=== PATIENT | male | born 1950 | race Caucasian/White ===

== ENCOUNTER 2020-04-17 20:44 | Inpatient (IN) | payer MEDICARE, SELFPAY ==
[2020-04-17] VITALS (8 sets, daily range): BP systolic 76–114; BP diastolic 52–69; PULSE 94–116; RESP 18–34; TEMP 36.6–37.2; O2SAT 94–97; BMI 26.3
--- NOTE | 2020-04-17 20:58 | EKG12_ITS ---
Test Reason : WEAKNESS Blood Pressure : / mmHG Vent. Rate : 110 BPM Atrial Rate : 110 BPM P-R Int : 150 ms QRS Dur : 068 ms QT Int : 382 ms P-R-T Axes : 027 043 037 degrees QTc Int : 516 ms Sinus tachycardia Low voltage QRS Borderline ECG Confirmed by MARYLU SOLORZANO, BERNIE ([id number]), news videotape editor BLANQUITA HORN ([id number]) on 04/19/2020 9:20:35 AM Referred By: ANTOLIN Confirmed By:BERNIE VALERO MD
--- NOTE | 2020-04-17 20:58 | CT_ITS ---
We are attempting to reach an attending provider to discuss findings. An addendum with communication details will be sent when the communication is complete. STUDY: CT ABDOMEN AND PELVIS WITH CONTRAST REASON FOR EXAM: Male, 70 years old. MID ABDOMEN PAIN.DIARRHEA AND WEAKNESS,PT RECENTLY DXWITH PANCREATIC CANCER WITH METS TO LIVER AND BONE,RECENTLY MOVED HERE FROM [place] RADIATION DOSAGE (If Supplied By Facility): CTDIvol = ( 18.09 ) mGy, DLP = ( 1141.89 ) mGycm TECHNIQUE: Transaxial images were obtained from the dome of the diaphragm to the symphysis pubis without oral contrast. IV 100mL Isovue-370 was administered. Sagittal and coronal images were reconstructed. Individualized dose optimization techniques were used for this CT. COMPARISON: None. FINDINGS: The visualized lung bases demonstrates scattered nodules up to 5 mm. The visualized portions of the heart are within normal limits. Scattered lesions throughout the liver up to 4.1 cm. Normal gallbladder and extrahepatic biliary system. Normal spleen. Heterogeneous pancreas with irregular enlargement of body likely related to a mass estimated at 4.5 x 4.9 cm. There is ascites in the upper abdomen. Normal bilateral adrenal glands. Normal right kidney. Normal left kidney. Normal visualized stomach. Normal small intestine. Diverticulosis of the colon. Wall thickening of the ascending colon and the sigmoid colon. The appendix is borderline in size measuring 8 mm. There are small gas droplets with scattered throughout the mesentery. Perforation cannot be excluded. Calcified abdominal aorta. Normal inferior vena cava. There is adenopathy in the retroperitoneum. Wall thickening of the urinary bladder. There is a pelvic and right lower quadrant fluid. There are gas droplets within the pelvic fluid. Small fatty umbilical hernia. Mild heterogeneity of the lower thoracic segments. CT/Abdomen/Pelvis W IV Cont ONLY IMPRESSION: Bilateral scattered pulmonary nodules. Hepatic lesions throughout the liver. Findings are suggestive of metastasis. Pancreatic mass. Colonic diverticulosis. Wall thickening of the ascending and sigmoid colon. Mild ascites and pelvic fluid collection. Scattered gas droplets within the abdomen and pelvis. Perforation cannot be excluded. Retroperitoneal adenopathy. Electronically Signed: Phoenix Hudson DO at 22:44 EDT Tel [phone], Service support ,
--- NOTE | 2020-04-17 21:02 | ED.VISSUMM ---
- ER Visit Summary Date of Service: 04/17/20 Chief Complaint: Generalized weakness History of Present Illness: The patient is a 70 M presenting with generalized weakness and fatigue. Family states this has been ongoing for the past couple weeks but has worsened over the past 48 hours. Patient has had diarrhea over the past couple of weeks. He was recently diagnosed with pancreatic cancer with mets to the liver and bones. He was previously living in [place] and family recently went to [place] to get him and brought him back to [place] to live. He denies any fever. Denies chest pain or shortness of breath. Denies other complaints. He did have a COVID test a couple weeks ago before a needle biopsy that was negative. Physical Examination: Blood pressure 83/53, temperature 97.8, heart rate 116, respiratory rate 18. Pulse ox 97% on room air. HEENT exam dry mucous membranes Neck is supple. Lungs are clear and equal bilaterally. Heart is regular and tachycardic Abdomen is soft epigastric tenderness with no guarding or rebound Extremities are unremarkable. Skin is warm and dry. No focal neurologic deficit. Remainder of exam is unremarkable. Emergency Department Course and Treatment: Patient was given IV fluids. CBC shows normal white count. Chemistries show sodium 125, potassium 3.4, BUN 47, creatinine 1.31. Total bili 1.9, previous total bili 1.4. Alk phos 154. Lipase is normal. Urinalysis shows positive nitrites, 0 white cells. Urine culture was sent. Troponin is negative. Lactic acid 5.3. Patient was given additional IV fluids. Repeat BP 114/62. Blood and stool cultures were ordered. CT abdomen/pelvis bilateral scattered pulmonary nodules. Hepatic lesions throughout the liver. Findings are suggestive of metastasis. Pancreatic mass. Colonic diverticulosis. Wall thickening of the ascending and sigmoid colon. Mild ascites and pelvic fluid collection. Scattered gas droplets within the abdomen and pelvis. Perforation cannot be excluded. Retroperitoneal adenopathy. Discussed with Dr. Yu. He will evaluate the patient in the emergency department. After further discussion with the patient and his nephew, his power of district attorney, they would like to pursue hospice care. Discussed with hospice. Patient and family do not want to be transferred tonight. Hospice will follow-up in the morning. Discussed with the hospitalist for admission. DO NOT RESUSCITATE comfort care only. Disposition: Admission Impression: Dehydration, lactic acidosis, hyponatremia, pneumoperitoneum, metastatic pancreatic cancer, DNR CC This note was generated with [employer] dictation software. It may contain incorrect words, spelling, and punctuation that were not noted in review of the chart prior to signing ED Disposition - Plan for ED Patient: Referrals: Care Physician,No Primary [Primary Care Provider] -
[2020-04-17] MEDS: 0.9% Normal Saline 1,000 ML 1000 ML IV ×2 (21:05→22:01)
[2020-04-17 21:11] LABS: Absolute Lymphocyte Count 1.24 X10^3/uL (0.83-4.51); Absolute Neutrophil Count 8.3 X10^3/uL (2.0-7.7); Basophil# 0.04 X10^3/uL; Basophil% 0.4 % (0-1); Eosinophil# 0.51 X10^3/uL; Eosinophils% 4.9 % (0-5); Hematocrit 41.8 % (40-54); Hemoglobin 14.4 g/dL (13.0-16.5); Lymphocyte # 1.24 X10^3/ul (4.0); Lymphocyte % 11.8 % (19-41); Mean Corp Hgb Conc 34.4 g/dL (32-36); Mean Corpuscular Hgb 28.2 pg (27.0-32.0); Mean Corpuscular Volume 81.8 fL (80-94); Mean Platelet Vol. 11.6 fl (6.2-12.0); Monocyte# 0.38 X10^3/uL; Monocyte% 3.6 % (0-10); NRBC Flagged by Analyzer 0 % (0-5); Neutrophil # 8.25 X10^3/uL (2.7-7.7); Neutrophil % 78.8 % (47-70); POSITIVE MORPHOLOGY YES; Platelet Count 213 K/mm3 (150-450); RBC Distribution Width CV 14.9 % (11.6-14.6); RBC Distribution Width SD 43.6 fl (35.1-43.9); Red Blood Count 5.11 M/mm3 (4.6-6.2); White Blood Count 10.5 K/mm3 (4.4-11.0)
[2020-04-17 21:16] LABS: Differential Indicated SCAN CRITERIA MET
--- NOTE | 2020-04-17 21:20 | RAD_ITS ---
STUDY: X-RAY CHEST REASON FOR EXAM: Male, 70 years old. Diarrhea, weakness x 3 days TECHNIQUE: Frontal view COMPARISON: None. FINDINGS: The lungs are expanded. Mild right basilar atelectasis. Normal size heart. Normal mediastinum and nayla. Normal visualized pulmonary arteries. Normal visualized aortic arch and descending thoracic aorta. Degenerative changes of the thoracic spine. Degenerative changes at the shoulders. Old left clavicular injury. There is no demonstrated abnormality of the visualized soft tissue structures of the upper abdomen. RAD/Chest 1 View (Portable) IMPRESSION: Mild right basilar atelectasis. Electronically Signed: Phoenix Hudson DO at 21:49 EDT Tel [phone], Service support ,
[2020-04-17 21:30] LABS: ALB/GLOB Ratio 0.4 RATIO (0.9-2.4); AST(SGOT) 37 U/L (15-37); Alanine Aminotransfer ALT/SGPT 13 U/L (16-61); Alkaline Phosphatase 154 U/L (45-117); Anion Gap 10 (5-15); BUN 47 mg/dL (7-18); BUN/Creat Ratio 35.9 RATIO (10-20); Calcium,Total 8.8 mg/dL (8.5-10.1); Chloride 79 mmol/L (98-107); Creatinine, Serum 1.31 mg/dL (0.70-1.30); EST Glomerular Filtration Rate 58 mL/min (>60); Est Glom Filt Rate - Afr Amer 70 mL/min (>60); Estimated Creatinine Clearance 47.35 ml/min; Globulin 5.3 g/dL (2.2-4.2); Glucose 117 mg/dL (74-106); Lipase 83 U/L (73-393); Potassium 3.4 mmol/L (3.5-5.1); Protein, Total 7.3 g/dL (6.4-8.2); Sodium Level 125 mmol/L (136-145)
[2020-04-17 21:41] LABS: Differential Comment SCANNED
[2020-04-17 21:47] LABS: Glucose, Dipstick Normal (Normal); Ketone-Dipstick 5 mg/dl (Negative); Leukocyte Esterase-Dipstick 25 /ul (Negative); Nitrite-Dipstick Positive (Negative); Occult Blood-Urine Negative /ul (Negative); Protein-Dipstick 15 mg/dl (Negative); Specific Gravity, Urine 1.025 (1.002-1.030); Urine Urobilinogen 4 mg/dl (Normal)
[2020-04-17 21:48] LABS: Color, Urine AMBER (Yellow); Urine Bilirubin Dipstick 6 mg/dL (Negative); Urine Clarity Sl Cldy (Clear)
[2020-04-17 21:49] LABS: Mucous, Urine 0 SEEN /hpf (<or=2+); Squamous Epithelial Cells - UA 0 SEEN /hpf (0-5); White Blood Cells 0 SEEN /hpf (0-5)
[2020-04-17 21:50] LABS: Lactic Acid 5.3 mmol/L (0.4-1.9)
[2020-04-17 22:07] LABS: Amorphous Sediment 1+; Bacteria 2+ /hpf (None Seen); Hyaline Cast 5-10 SEEN /lpf (0-5); Red Blood Cells-Urine 0-5 SEEN /hpf (0-5)
[2020-04-17] MEDS: 0.9% Normal Saline 1,000 ML 999 ML IV (22:26)
--- NOTE | 2020-04-17 23:32 | PCM.CONS.GEN ---
Problem List (1) Perforated diverticulum Status: Acute (2) Septic shock Status: Acute (3) Metastasis from pancreatic cancer Status: Acute Reason for Consult Date of Consultation: 04/17/20 History of Present Illness: The patient is a 70 year old M presented with abdominal pain. The patient's nephew brought him in. He recently moved from [place] after being diagnosed with metastatic pancreatic cancer. The patient's nephew notes that over the last 24 hours his uncle status has deteriorated and he thought he was very dehydrated and brought him into the hospital. Patient not having any nausea or vomiting. Past Medical History Allergies Penicillins Allergy (Verified 04/17/20 20:49) Hives Home Medications: Ambulatory Orders Medication Instructions Recorded Loperamide [Imodium] 1 tab PO BID PRN 04/17/20 Omeprazole [Prilosec] 20 mg PO DAILY 04/17/20 Smoking Status: Never smoker - *Family History Maternal History Items: No pertinent history Review of Systems Constitutional: Reports: Anorexia. Denies: Fever HEENT: Denies: Difficulty Swallowing Cardiovascular: Denies: Chest Pain Respiratory: Denies: Cough Gastrointestinal: Reports: Abdominal Pain. Denies: Nausea, Vomiting Genitourinary: Denies: Incontinence, Nocturia Skin: Denies: Jaundice Neurological: Denies: Balance problems Patient Problems: Active and Suspected Problems Perforated diverticulum (Acute) Septic shock (Acute) Metastasis from pancreatic cancer (Acute) - Physical Exam Vitals/I&O's: Vital Signs Temp Pulse Resp BP Pulse Ox 98.1 F 96 21 H 89/56 L 94 04/17/20 22:03 04/17/20 23:05 04/17/20 23:05 04/17/20 23:05 04/17/20 23:05 Oxygen Delivery Method Room Air Weight: 163 lb 2.273 oz Body Mass Index (BMI) 26.3 Intake and Output for Last 24 Hours 04/15/20 04/16/20 04/17/20 23:59 23:59 23:59 Intake Total 1999 Balance 1999 General: Alert, Lethargic, - - Cachectic HEENT: Atraumatic Lungs: Normal air movement Cardiovascular: Tachycardic Abdomen: Soft, Non-Distended, Tender - Diffuse tenderness Extremities: No clubbing Skin: No rashes Musculoskeletal: Cachexia, Muscle Wasting Neurological: Cranial nerves II-XII grossly intact Psych/Mental Status: Normal Affect Laboratory Results 04/17/20 21:00: WBC 10.5, RBC 5.11, Hgb 14.4, Hct 41.8, MCV 81.8, MCH 28.2, MCHC 34.4, RDW Std Deviation 43.6, RDW Coeff of Dorian 14.9 H, Plt Count 213, MPV 11.6, Immature Gran % (Auto) 0.500, Neut % (Auto) 78.8 H, Lymph % (Auto) 11.8 L, Benzie % (Auto) 3.6, Eos % (Auto) 4.9, Baso % (Auto) 0.4, Absolute Neuts (auto) 8.3 H, Absolute Lymphs (auto) 1.24, Nucleated RBC % 0, Differential Comment SCANNED 04/17/20 21:00: Sodium 125 L, Potassium 3.4 L, Chloride 79 L, Carbon Dioxide 36.0 H, Anion Gap 10, BUN 47 H, Creatinine 1.31 H, Estim Creat Clear Calc 47.35, Est GFR (MDRD) Af Amer 70, Est GFR (MDRD) Non-Af 58 L, BUN/Creatinine Ratio 35.9 H, Glucose 117 H, Calcium 8.8, Total Bilirubin 1.90 H, AST 37, ALT 13 L, Alkaline Phosphatase 154 H, Troponin I < 0.015, Total Protein 7.3, Albumin 2.0 L, Globulin 5.3 H, Albumin/Globulin Ratio 0.4 L, Lipase 83 04/17/20 21:00: Lactic Acid 5.3 H* 04/17/20 21:40: Urine Color ADAMA, Urine Clarity Sl Cldy, Urine pH 5.0, Ur Specific [place] 1.025, Urine Protein 15 H, Urine Glucose (UA) Normal, Urine Ketones 5 H, Urine Occult Blood Negative, Urine Nitrite Positive H, Urine Bilirubin 6 H, Urine Urobilinogen 4 H, Ur Leukocyte Esterase 25 H, Urine RBC 0-5 SEEN, Urine WBC 0 SEEN, Ur Squamous Epith Cells 0 SEEN, Amorphous Sediment 1+, Urine Bacteria 2+, Hyaline Casts 5-10 SEEN, Urine Mucus 0 SEEN Clinical Impression(s) from Imaging Studies Abdomen/Pelvis CT 04/17/20 20:58 IMPRESSION: Bilateral scattered pulmonary nodules. Hepatic lesions throughout the liver. Findings are suggestive of metastasis. Pancreatic mass. Colonic diverticulosis. Wall thickening of the ascending and sigmoid colon. Mild ascites and pelvic fluid collection. Scattered gas droplets within the abdomen and pelvis. Perforation cannot be excluded. Retroperitoneal adenopathy. Electronically Signed: Phoenix Hudson DO at 22:44 EDT Tel [phone], Service support , ADDENDUM: 04/17/20 2304 IMPRESSION: Bilateral scattered pulmonary nodules. Hepatic lesions throughout the liver. Findings are suggestive of metastasis. Pancreatic mass. Colonic diverticulosis. Wall thickening of the ascending and sigmoid colon. Mild ascites and pelvic fluid collection. Scattered gas droplets within the abdomen and pelvis. Perforation cannot be excluded. Retroperitoneal adenopathy. N.B. : The above information has been verbally conveyed by Phoenix Hudson DO to Amanda Song MD, on 04/17/2020 22:57:48 (ET). Electronically Signed: Phoenix Hudson DO at 22:44 EDT Tel [phone], Service support , Chest X-Ray 04/17/20 21:20 IMPRESSION: Mild right basilar atelectasis. Electronically Signed: Phoenix Hudson DO at 21:49 EDT Tel [phone], Service support , Assessment/Plan All Active Problems Perforated diverticulum (Acute) Septic shock (Acute) Metastasis from pancreatic cancer (Acute) 70-year-old male with a history of metastatic pancreatic cancer and perforated diverticulitis 1. The patient has septic shock and CT scan reveals ascites as well as fluid around the sigmoid colon with perforation and free air. The patient likely has perforated diverticulitis. The patient has metastatic lesion and a mass in his pancreas which is suggestive of metastatic pancreatic cancer. 2. I discussed the patient's situation with the patient and his nephew. I explained his dire situation and that he was in septic shock with a perforated viscus. I explained that the maximal therapy would be initiating pressor therapy and central lines with intubation and ICU preparation for surgery with laparotomy and sigmoid colectomy and Jarvis's procedure. At this time the patient and his nephew agree that they would rather pursue hospice. I agree with this choice. I will have hospice arrangements made. Lane Yu MD Pager: [facility] [address] [place] [address], [address] [place] [address] Office:
--- NOTE | 2020-04-17 23:38 | HP.PCM_ITS ---
Problem List (1) Hypovolemic shock Status: Acute (2) Perforated abdominal viscus Status: Acute (3) Perforated diverticulum Status: Acute (4) Metastasis from pancreatic cancer Status: Acute History of Present Illness Date of Admission: 04/17/20 Chief Complaint: Lethargy The patient is a 70 year old M with a significant history of hypertension; and metastatic pancreatic cancer who presents to the emergency department with lethargy. Patient was living at [place]. His nephew who is his POA brought him to the [place] area because of recent diagnosis of neuroendocrine tumor of the pancreas. Reportedly a CT scan at the end of February showed a pancreatic tumor. Patient had a CT guided needle biopsy of the liver on April 06 2020. Liver biopsy of the liver confirmed neuroendocrine tumor. Pre-operative COVID-19 test for biopsy was negative. For about a month patient has been having diarrhea and is on Imodium. Patient has no fever or chills. Associated with his symptoms is weakness. Reportedly lab work done at [place] showed electrolyte imbalance. Patient's nephew discussed the case with his own (nephew's) PCP was going to be patient's new PCP. Patient's nephew was advised to bring patient to the emergency department for probable treatment of dehydration. Patient was evaluated by general surgery at emergency department and hospice was recommended. Patient and POA is in agreement with hospice. Because of concern that patient may in a few hours a decision was made at the ED to admit patient. Past Medical History Medical History: Medical History (Last Updated 04/18/20 @ 00:[address] Denver Liu MD) Malignant neoplasm of pancreas metastatic to liver C25.9, C78.7 Allergies Penicillins Allergy (Verified 04/17/20 20:49) Hives Home Medications: Ambulatory Orders Medication Instructions Recorded Loperamide [Imodium] 1 tab PO BID PRN 04/17/20 Omeprazole [Prilosec] 20 mg PO DAILY 04/17/20 Surgical History: tonsillectomy Smoking Status: Never smoker - *Family History Maternal History Items: - - Denies knowledge of maternal medical history Paternal History Items: COPD Review of Systems Constitutional: Reports: Anorexia, Weight Change - Reportedly he has lost about 80 to 90 pounds in the last 10 to 12 months.. Denies: Chills, Fever HEENT: Denies: Head Aches, Sinus Congestion, Sinus Drainage Cardiovascular: Denies: Chest Pain, Palpitations Respiratory: Denies: Cough, Shortness of breath at rest, Sputum production Gastrointestinal: Reports: Abdominal Pain, Diarrhea. Denies: Nausea, Vomiting Genitourinary: Denies: Dysuria Musculoskeletal: Denies: Joint Pain, Joint Tenderness Skin: Denies: Rash, Wounds Neurological: Denies: Numbness, Tingling, Focal weakness Psychiatric: Denies: Anxiety, Depression, Homicidal Ideations, Suicidal Ideat ions Hematologic/ Lymphatic: Denies: Easy Bruising, Easy Bleeding VTE Information - Inpt Only VTE Present on Admission: No VTE Mechan Device Prophylaxis: None VTE Pharm Prophylaxis ordered?: No Reason prophylaxis not ordered:: Treatment Not Indicated - End-of-life care Patient Problems: Active and Suspected Problems (Last Updated 04/18/20 @ 00:[address] Denver Liu MD) Perforated diverticulum (Acute) Metastasis from pancreatic cancer (Acute) Hypovolemic shock (Acute) Perforated abdominal viscus (Acute) - Physical Exam Vitals/I&O's: Vital Signs Temp Pulse Resp BP Pulse Ox 98.1 F 96 21 H 89/56 L 94 04/17/20 22:03 04/17/20 23:05 04/17/20 23:05 04/17/20 23:05 04/17/20 23:05 Oxygen Delivery Method Room Air Weight: 74 kg Body Mass Index (BMI) 26.3 Intake and Output for Last 24 Hours 04/15/20 04/16/20 04/17/20 23:59 23:59 23:59 Intake Total 1999 Balance 1999 General: Oriented x3, Lethargic HEENT: Atraumatic, PERRLA, EOMI, Normocephalic Neck: Supple, Trachea Midline Lungs: Clear to auscultation, Normal air movement, Tachypneic Cardiovascular: Normal S1, Normal S2, No murmurs, Tachycardic Abdomen: Bowel Sounds Present, Soft, Tender Extremities: No edema, Capillary Refill Less than 3 Seconds Skin: No rashes, No breakdown Musculoskeletal: No Tenderness to Palpation of Joints or Extremities Neurological: Cranial nerves II-XII grossly intact Psych/Mental Status: Depressed Laboratory Results 04/17/20 21:00: WBC 10.5, RBC 5.11, Hgb 14.4, Hct 41.8, MCV 81.8, MCH 28.2, MCHC 34.4, RDW Std Deviation 43.6, RDW Coeff of Dorian 14.9 H, Plt Count 213, MPV 11.6, Immature Gran % (Auto) 0.500, Neut % (Auto) 78.8 H, Lymph % (Auto) 11.8 L, [place] % (Auto) 3.6, Eos % (Auto) 4.9, Baso % (Auto) 0.4, Absolute Neuts (auto) 8.3 H, Absolute Lymphs (auto) 1.24, Nucleated RBC % 0, Differential Comment SCANNED 04/17/20 21:00: Sodium 125 L, Potassium 3.4 L, Chloride 79 L, Carbon Dioxide 36.0 H, Anion Gap 10, BUN 47 H, Creatinine 1.31 H, Estim Creat Clear Calc 47.35, Est GFR (MDRD) Af Amer 70, Est GFR (MDRD) Non-Af 58 L, BUN/Creatinine Ratio 35.9 H, Glucose 117 H, Calcium 8.8, Total Bilirubin 1.90 H, AST 37, ALT 13 L, Alkaline Phosphatase 154 H, Troponin I < 0.015, Total Protein 7.3, Albumin 2.0 L , Globulin 5.3 H, Albumin/Globulin Ratio 0.4 L, Lipase 83 04/17/20 21:00: Lactic Acid 5.3 H* 04/17/20 21:40: Urine Color ADAMA, Urine Clarity Sl Cldy, Urine pH 5.0, Ur Specific [place] 1.025, Urine Protein 15 H, Urine Glucose (UA) Normal, Urine Ketones 5 H, Urine Occult Blood Negative, Urine Nitrite Positive H, Urine Bilirubin 6 H, Urine Urobilinogen 4 H, Ur Leukocyte Esterase 25 H, Urine RBC 0-5 SEEN, Urine WBC 0 SEEN, Ur Squamous Epith Cells 0 SEEN, Amorphous Sediment 1+, Urine Bacteria 2+, Hyaline Casts 5-10 SEEN, Urine Mucus 0 SEEN Assessment/Plan All Active Problems (Last Updated 04/18/20 @ 00:[address] Denver Liu MD) Perforated diverticulum (Acute) Metastasis from pancreatic cancer (Acute) Hypovolemic shock (Acute) Perforated abdominal viscus (Acute) The patient is a 70 year old M with a significant history of hypertension; and metastatic pancreatic cancer who presents emergency department with lethargy; was found to have a perforated viscus and metastatic pancreatic cancer with lactic acidosis and hypotension. Hypovolemic shock secondary to perforated viscus secondary to metastatic pancreatic cancer; and diarrhea Patient with no fever or chills. Patient with a normal white count and with no bandemia. Abdomen and pelvis CT showed bilateral scattered pulmonary nodules; hepatic lesions; pancreatic mass; colonic diverticulosis; wall thickening of the ascending and sigmoid:; Mild ascites and pelvic fluid collections;scattered gas droplets within abdomen and pelvis; perforation could not be excluded; retroperitoneal adenopathy. Lactic acid of 5.3 likely secondary to hypoperfusion from hypovolemic shock and poor clearance from liver. Received normal saline 30 mL's per kilogram bolus at emergency department. Received IV fentanyl at emergency department. End-of-life order sets with PRN morphine; PRN Ativan; PRN atropine; and PRN Imodium. Hospice consults Hyponatremia Like secondary to dehydration Received IV fluids at emergency department. No further IV fluids at this time. Comfort care measures. HUGH His creatinine on presentation was 1.31. No old records to compare with. BUN over creatinine is 35.9. Like secondary to dehydration. Received normal saline 30 MLS per kilogram bolus at the emergency department. Abnormal urinalysis Likely secondary to dehydration Received normal saline bolus at the emergency department. DVT prophylaxis Not indicated at this point. Comfort care measures only. Inpatient E&M: [id number] Init Hosp L3
[2020-04-18 00:15] VITALS: BP 76/59; PULSE 96; RESP 30; O2SAT 94
[2020-04-18] MEDS: fentaNYL 100 MCG/2 ML Ampul 50 MCG IV (00:20)
[2020-04-18 00:44] VITALS: BMI 29.0
[2020-04-18 01:04] LABS: Reflex Lactate? Y
[2020-04-18 01:17] VITALS: BMI 29.1
[2020-04-18 01:29] VITALS: BP 75/53; PULSE 89; RESP 22; TEMP 36.6; O2SAT 94
--- NOTE | 2020-04-18 01:35 | NURSING ---
Amish patients nephew in at beside, supportive. Family refused blood draw.
--- NOTE | 2020-04-18 09:56 | CASEMGMT ---
Social Work Note CLAUDETTE reviewed chart, Pt and pt's POA is agreeable to Hospice consult. SW in to speak with pt. Pt sleeping, didn't wake up when this worker entered pt's room. Pt has other family present. The family present states pt's POA Amish just left but confirms plan is Hospice consult. CLAUDETTE placed a call to pt's POA Amish. Amish confirms plan is for Hospice consult. Amish states he would like to be called regarding Hospice consult. CLAUDETTE received call from Jaci in admissions at [facility] requesting update and clinicals to be faxed. Jaci states hospitalist will need to call Dr. Layne with Hospice. CLAUDETTE updated physician. CLAUDETTE faxed updated clinicals to [facility]. Plan: Hospice consult Lea Guzmán [employer]PER[employer], [employer]
[2020-04-18] MEDS: 0.9% Saline Lock 10 ML Syringe IV ×2 (11:48→12:28)
[2020-04-18] MEDS: Morphine 2 MG/ML Syringe IV ×2 (11:48→12:27)
--- NOTE | 2020-04-18 16:24 | PCM.DC.SUM ---
Discharge Date and Diagnosis Date of Admission: 04/17/20 Date of Discharge: 04/18/20 - Primary Discharge Diagnosis Acute Problems: #1 septic shock secondary to peritonitis from perforated sigmoid colon #2 perforated sigmoid colon probably secondary to perforated colonic diverticula #3 metastatic pancreatic cancer #4 peritonitis secondary to perforated sigmoid colon diverticula #5 hyponatremia #6 hypokalemia Hospital Course and Treatment Operations: None Procedures: None Summary of Care Provided: The patient is a 70 year old M was seen in the emergency room at [facility] after being brought in by family members due to ongoing weakness which had increased over the past 48 hours. Patient had been recently diagnosed with metastatic pancreatic cancer and was previously living in [place] until he was moved back to [place] to live with his family members. Work-up in the emergency room showed the patient have a normal CBC, chemistry showed a sodium of 125, potassium of 3.4, BUN of 47 and creatinine of 1.31. Total bilirubin was 1.9, alkaline phosphatase was 154. Urinalysis showed positive nitrites, 0 white blood cells. Troponin was negative, lactic acid was elevated at 5.3, patient's blood pressure on admission to the emergency room was 83/53. CT of the abdomen pelvis was ordered which showed scattered pulmonary nodules, hepatic lesions were noted throughout the liver suggestive of metastases, there is a pancreatic mass noted to be present, there was also mild ascites and pelvic fluid and there was also evidence of free air in the abdomen indicating a colonic perforation. General surgery was contacted, patient was evaluated in the emergency department and further discussions were carried out with the patient and the patient's nephew-it was decided that the patient would not undergo any surgery and would be admitted for hospice placement, due to the patient's hypotension-patient was made a DNR comfort care on admission, it was not known whether the patient would soon and it was felt that he could be admitted and reevaluated by hospice to see if he was a candidate for going to the hospice care center. On 04/18/2020, patient was seen and examined: On examination he appeared in no acute distress, patient was resting quietly. Vital signs as documented. Skin warm and dry and without overt rashes. Neck without JVD, neck was supple, trachea midline, thyroid was normal. Lungs clear bilaterally, normal air movement was noted. Heart exam notable for regular rhythm, normal sounds and absence of murmurs, rubs or gallops. Abdomen unremarkable and without evidence of organomegaly, masses, or abdominal aortic enlargement. Bowel sounds are diminished, abdomen is not distended, patient had left lower quadrant abdominal tenderness to palpation. Extremities nonedematous, no cyanosis was noted, no clubbing was noted. Neuro: Cranial nerves II through XII are grossly intact, no focal motor deficits were noted, sensation to light touch and pinprick intact, motor exam 5/5 throughout. Psych: Patient is alert and oriented x3, he does not appear anxious or depressed, he does not appear agitated. I had a discussion with Dr. Layne (hospice care) he agreed to take the patient as a full admission into inpatient hospice in [place], patient and the patient's family was agreeable to this plan of care. Patient's prognosis was poor due to his metastatic disease and colonic perforation. - Physical Exam Vitals/I&O's: Vital Signs Temp Pulse Resp BP Pulse Ox 97.9 F 89 22 H 75/53 L 94 04/18/20 01:29 04/18/20 01:29 04/18/20 01:29 04/18/20 01:29 04/18/20 01:29 Oxygen Delivery Method Room Air Weight: 81.7 kg Body Mass Index (BMI) 29.0 Intake and Output for Last 24 Hours 04/16/20 04/17/20 04/18/20 23:59 23:59 23:59 Intake Total 1999 1000 / 1000 Balance 1999 1000 / 1000 Microbiology Past 72 Hours 04/17/20 22:25 Blood Culture (Wb) - Anticubital Right Blood Culture - Preliminary Laboratory Results 04/17/20 21:00: WBC 10.5, RBC 5.11, Hgb 14.4, Hct 41.8, MCV 81.8, MCH 28.2, MCHC 34.4, RDW Std Deviation 43.6, RDW Coeff of Dorian 14.9 H, Plt Count 213, MPV 11.6, Immature Gran % (Auto) 0.500, Neut % (Auto) 78.8 H, Lymph % (Auto) 11.8 L, [place] % (Auto) 3.6, Eos % (Auto) 4.9, Baso % (Auto) 0.4, Absolute Neuts (auto) 8.3 H, Absolute Lymphs (auto) 1.24, Nucleated RBC % 0, Differential Comment SCANNED 04/17/20 21:00: Sodium 125 L, Potassium 3.4 L, Chloride 79 L, Carbon Dioxide 36.0 H, Anion Gap 10, BUN 47 H, Creatinine 1.31 H, Estim Creat Clear Calc 47.35, Est GFR (MDRD) Af Amer 70, Est GFR (MDRD) Non-Af 58 L, BUN/Creatinine Ratio 35.9 H, Glucose 117 H, Calcium 8.8, Total Bilirubin 1.90 H, AST 37, ALT 13 L, Alkaline Phosphatase 154 H, Troponin I < 0.015, Total Protein 7.3, Albumin 2.0 L, Globulin 5.3 H, Albumin/Globulin Ratio 0.4 L, Lipase 83 04/17/20 21:00: Lactic Acid 5.3 H* 04/17/20 21:40: Urine Color ADAMA, Urine Clarity Sl Cldy, Urine pH 5.0, Ur Specific [place] 1.025, Urine Protein 15 H, Urine Glucose (UA) Normal, Urine Ketones 5 H, Urine Occult Blood Negative, Urine Nitrite Positive H, Urine Bilirubin 6 H, Urine Urobilinogen 4 H, Ur Leukocyte Esterase 25 H, Urine RBC 0-5 SEEN, Urine WBC 0 SEEN, Ur Squamous Epith Cells 0 SEEN, Amorphous Sediment 1+, Urine Bacteria 2+, Hyaline Casts 5-10 SEEN, Urine Mucus 0 SEEN Home Medications: Medications to take at Discharge Loperamide [Imodium] 1 tab PO BID PRN 04/17/20 Omeprazole [Prilosec] 20 mg PO DAILY 04/17/20 Primary Care Physician: Care Physician,No Primary [Primary Care Provider] - Disposition: Hospice Medical Facility Minutes spent on discharge:: 31 Patient Condition:: Stable Medical Necessity - Tobacco Use Smoking Status: Never smoker Meaningful Use Info Meaningful Use Diagnoses (Choose all that apply): None applicable Inpatient E&M: 49197 Disch Hosp
== END 2020-04-18 13:20 | disposition hospice, inpatient (51) | DRG 871 ==
LOC: ED 22:08 → MS3 04-18 00:52
PROVIDERS: Admitting Provider Hospitalist; Emergency Provider Emergency Medicine; Visit Provider Internal Medicine
DX: A41.9 Sepsis, unspecified organism (principal); K65.9 Peritonitis, unspecified; R65.21 Severe sepsis with septic shock; K57.20 Diverticulitis of large intestine with perforation and abscess without bleeding; E87.1 Hypo-osmolality and hyponatremia; C78.7 Secondary malignant neoplasm of liver and intrahepatic bile duct; C79.51 Secondary malignant neoplasm of bone; C25.9 Malignant neoplasm of pancreas, unspecified; E87.6 Hypokalemia; Z66 Do not resuscitate
CPT/HCPCS: 71045; 74177; 80053; 81001; 83605; 83690; 84484; 85025; 87040; 87077; 87086; 87186; 93005; 99285; J7030; Q9967; A4216